=== PATIENT | female | born 1950 | race Caucasian/White ===

== ENCOUNTER 2019-07-27 07:00 | Outpatient (RCR) | payer MEDICARE, SELFPAY ==
[2019-04-28 11:59] VITALS: PULSE 58
--- NOTE | 2019-05-11 07:19 | PCCPR ---
Absent today due to inclement weather.
--- NOTE | 2019-05-14 10:49 | PCCPR ---
Continued absence Amelia left message on [employer] VM she was still not feeling well most likely will not return until Friday 05/18.
--- NOTE | 2019-06-15 07:33 | PCCPR ---
Absent-left voicemail with Elisabeth, no reason given.
--- NOTE | 2019-07-16 07:02 | PCCPR ---
Pt cxl CR today due to leg cramping all night. Plans to return Sat. 07/20
--- NOTE | 2019-07-22 07:39 | PCCPR ---
Absent.Left voicemail stating she had a bad night.
== END 2019-07-27 23:59 | disposition home or self-care (01) ==
LOC: ANHCPREHAB 07:00
PROVIDERS: PCP Internal Medicine Geriatric Medicine
DX: I50.89 Other heart failure (principal)
CPT/HCPCS: 93798

== ENCOUNTER 2019-08-05 07:00 | Outpatient (RCR) | payer MEDICARE, SELFPAY ==
[2019-07-28 00:05] VITALS: PULSE 58
== END 2019-08-05 08:45 | disposition home or self-care (01) ==
LOC: ANHCPREHAB 07:00
PROVIDERS: PCP Internal Medicine Geriatric Medicine
DX: I50.89 Other heart failure (principal)
CPT/HCPCS: 93798